=== PATIENT | female | born 1985 | race Native Hawaiian/Other Pacific Islander ===

== ENCOUNTER 2017-11-27 11:12 | Emergency (ER) | payer OTHER ==
[~2017-11-27] VITALS: Ht 167.6 cm; Wt 109.8 kg
[2017-11-27 11:25] VITALS: TEMP 97.5
[2017-11-27 12:28] LABS: PLATELET COUNT 211 K/uL (152-353)
[2017-11-27 13:06] LABS: POTASSIUM 3.6 mmol/L (3.6-5.2)
[2017-11-27 13:25] VITALS: BP 133/80
== END 2017-11-27 13:30 | disposition home or self-care (01) ==
LOC: ED 11:12
PROVIDERS: Family Medicine
DX: G43.909 Migraine, unspecified, not intractable, without status migrainosus (principal)
CPT/HCPCS: 80048; 85027; 96374; 99284; J1170

== ENCOUNTER 2019-11-21 14:59 | Emergency (ER) | payer OTHER ==
[~2019-11-21] VITALS: Ht 170.2 cm; Wt 95.3 kg
[2019-11-21 15:10] VITALS: TEMP 98.1
[2019-11-21 16:47] VITALS: BP 136/88
== END 2019-11-21 16:48 | disposition home or self-care (01) ==
LOC: ED 14:59
DX: J06.9 Acute upper respiratory infection, unspecified (principal); J32.9 Chronic sinusitis, unspecified; F17.210 Nicotine dependence, cigarettes, uncomplicated
CPT/HCPCS: 87502; 87651; 99283